=== PATIENT | female | born 1975 | race Caucasian/White ===

== ENCOUNTER 2019-04-18 08:09 | Emergency (ER) | payer BC, OTHER ==
[2019-04-18 08:15] VITALS: RESP 18
[2019-04-18] MEDS ORDERED: SODIUM CHLORIDE 0.9% 2,000 ML IV STA (08:22)
[2019-04-18] MEDS ORDERED: ONDANSETRON 4 MG/2 ML VIAL IVP STA (08:22)
--- NOTE | 2019-04-18 08:37 | ED ---
Nausea/Vomiting/Diarrhea HPI - General Chief complaint: Nausea/Vomiting/Diarrhea Stated complaint: vomiting Time Seen by Provider: 04/18/19 08:20 Source: patient, RN notes reviewed Mode of arrival: ambulatory Limitations: no limitations - History of Present Illness Initial comments: 44-year-old female presents emergency Department with chief complaint of nausea vomiting diarrhea since Friday afternoon. Patient states that she's had persistent symptoms of diarrhea and vomiting denies any hematemesis, coffee- ground emesis, melena or hematochezia. Patient states that she's had a prior appendectomy and one ovary removed in the past. Patient states she has mild abdominal discomfort. Denies fevers or chills. Patient has chest pain or shortness of breath. Patient states his symptoms started shortly after receiving a Saxenda injection for weight loss. Patient states she has not taken it since that they. Patient denies any sick contacts. Patient offers no other associated complaints. - Related Data Home Medications Medication Instructions Recorded Confirmed Multivit with Calcium,Iron,Min 1 tab PO DAILY 06/25/16 04/18/19 [Women's Daily Multivitamin] Topiramate [Topamax] 50 mg PO HS 04/18/19 04/18/19 Allergies Allergy/AdvReac Type Severity Reaction Status Date / Time amoxicillin AdvReac Nausea & Verified 04/18/19 08:49 Vomiting codeine AdvReac Nausea & Verified 04/18/19 08:49 Vomiting morphine AdvReac Itching Verified 04/18/19 08:49 Review of Systems ROS Statement: Those systems with pertinent positive or pertinent negative responses have been documented in the HPI. ROS Other: All systems not noted in ROS Statement are negative. Past Medical History Additional Past Medical History / Comment(s): frequent migraine headaches, right lower abd. pain History of Any Multi-Drug Resistant Organisms: None Reported Past Surgical History: Appendectomy, Breast Surgery, Section, Tonsillectomy, Tubal Ligation, Uterine Ablation Additional Past Surgical History / Comment(s): breast reduction, c/s x2, Past Anesthesia/Blood Transfusion Reactions: Motion Sickness, Postoperative Nausea & Vomiting (PONV) Past Psychological History: No Psychological Hx Reported Smoking Status: Former smoker Past Alcohol Use History: None Reported Past Drug Use History: None Reported - Past Family History Mother Family Medical History: No Reported History General Exam Limitations: no limitations General appearance: alert, in no apparent distress Head exam: Present: atraumatic, normocephalic, normal inspection Eye exam: Present: normal appearance, PERRL, EOMI. Absent: scleral icterus, conjunctival injection, periorbital swelling ENT exam: Present: normal exam, mucous membranes moist Neck exam: Present: normal inspection. Absent: tenderness, meningismus, lymphadenopathy Respiratory exam: Present: normal lung sounds bilaterally. Absent: respiratory distress, wheezes, rales, rhonchi, stridor Cardiovascular Exam: Present: normal rhythm, tachycardia, normal heart sounds. Absent: systolic murmur, diastolic murmur, rubs, gallop, clicks GI/Abdominal exam: Present: soft, tenderness (Mild diffuse), normal bowel sounds. Absent: distended, guarding, rebound, rigid Back exam: Absent: CVA tenderness (R), CVA tenderness (L) Neurological exam: Present: alert, oriented X3, CN II-XII intact Skin exam: Present: warm, dry, intact, normal color. Absent: rash Course Vital Signs 04/18/19 08:11 Temperature 98.8 F Pulse Rate 115 H Respiratory 18 Rate Blood Pressure 134/84 O2 Sat by Pulse 98 Oximetry Medical Decision Making - Medical Decision Making 44-year-old female presented for nausea vomiting diarrhea. Patient symptoms seem to be consistent with gastritis associates multiple quadrant abdominal pain and leukocytosis CT was obtained which shows colonic ileus no evidence of diverticulitis or any other acute abnormality. Patient will be discharged with Zofran clear liquid diet and progress as tolerated. - Lab Data Result diagrams: 04/18/19 08:41 04/18/19 08:41 Lab Results 04/18/19 04/18/19 04/18/19 Range/Units 08:41 08:41 08:41 WBC 18.7 H (3.8-10.6) k/uL RBC 4.60 (3.80-5.40) m/uL Hgb 14.0 (11.4-16.0) gm/dL Hct 41.9 (34.0-46.0) % MCV 91.1 (80.0-100.0) fL MCH 30.4 (25.0-35.0) pg MCHC 33.4 (31.0-37.0) g/dL RDW 14.6 (11.5-15.5) % Plt Count 333 (150-450) k/uL Neutrophils % 84 % Lymphocytes % 11 % Monocytes % 4 % Eosinophils % 0 % Basophils % 0 % Neutrophils # 15.7 H (1.3-7.7) k/uL Lymphocytes # 2.0 (1.0-4.8) k/uL Monocytes # 0.8 (0-1.0) k/uL Eosinophils # 0.1 (0-0.7) k/uL Basophils # 0.0 (0-0.2) k/uL Sodium 141 (137-145) mmol/L Potassium 4.2 (3.5-5.1) mmol/L Chloride 112 H (98-107) mmol/L Carbon Dioxide 19 L (22-30) mmol/L Anion Gap 10 mmol/L BUN 17 (7-17) mg/dL Creatinine 0.57 (0.52-1.04) mg/dL Est GFR (CKD-EPI)AfAm >90 (>60 ml/min/1.73 sqM) Est GFR (CKD-EPI)NonAf >90 (>60 ml/min/1.73 sqM) Glucose 136 H (74-99) mg/dL Calcium 9.0 (8.4-10.2) mg/dL Total Bilirubin 1.4 H (0.2-1.3) mg/dL AST 37 H (14-36) U/L ALT 48 (9-52) U/L Alkaline Phosphatase 81 (38-126) U/L Total Protein 7.4 (6.3-8.2) g/dL Albumin 4.6 (3.5-5.0) g/dL Lipase 56 (23-300) U/L Urine Color Yellow Urine Appearance Cloudy H (Clear) Urine pH 5.5 (5.0-8.0) Ur Specific [place] 1.024 (1.001-1.035) Urine Protein Trace H (Negative) Urine Glucose (UA) Negative (Negative) Urine Ketones Negative (Negative) Urine Blood Negative (Negative) Urine Nitrite Negative (Negative) Urine Bilirubin Negative (Negative) Urine Urobilinogen <2.0 (<2.0) mg/dL Ur Leukocyte Esterase Trace H (Negative) Urine RBC 1 (0-5) /hpf Urine WBC 13 H (0-5) /hpf Ur Squamous Epith Cells 6 H (0-4) /hpf Urine Bacteria Rare H (None) /hpf Urine Mucus Few H (None) /hpf Disposition Clinical Impression: Gastroenteritis, Dehydration Disposition: HOME SELF-CARE Condition: Stable Instructions (If sedation given, give patient instructions): Gastroenteritis (ED) Additional Instructions: Please return to the Emergency Department if symptoms worsen or any other concerns. Is patient prescribed a controlled substance at d/c from ED?: No Referrals: Ron Gonzalez MD [Primary Care Provider] - 1-2 days Time of Disposition: 10:47
[2019-04-18 09:15] LABS: Appearance,Urine Cloudy (Clear); Bacteria,Urine Rare /hpf; Bilirubin,Urine Negative (Negative); Blood,Urine Negative (Negative); Color,Urine Yellow; Glucose,Urine (UA) Negative (Negative); Ketones,Urine Negative (Negative); Leukocyte Esterase,Urine Trace (Negative); Mucus,Urine Few /hpf; Nitrite,Urine Negative (Negative); PH, Urine 5.5 (5.0-8.0); Protein,Urine Trace (Negative); RBC,Urine 1 /hpf (0-5); Specific Gravity,Urine 1.024 (1.001-1.035); Squamous Epithelial Cell,Urine 6 /hpf (0-4); Urobilinogen,Urine <2.0 mg/dL (<2.0)
[2019-04-18 09:21] LABS: ALT 48 U/L (9-52); AST 37 U/L (14-36); Albumin 4.6 g/dL (3.5-5.0); Alkaline Phosphatase 81 U/L (38-126); Anion Gap 10 mmol/L; Blood Urea Nitrogen 17 mg/dL (7-17); Carbon Dioxide 19 mmol/L (22-30); Chloride 112 mmol/L (98-107); Glucose 136 mg/dL (74-99); Lipase 56 U/L (23-300); Potassium 4.2 mmol/L (3.5-5.1); Sodium 141 mmol/L (137-145); Total Bilirubin 1.4 mg/dL (0.2-1.3); Total Protein 7.4 g/dL (6.3-8.2)
[2019-04-18 09:36] LABS: Basophils % (A) 0 %; Eosinophils # (A) 0.1 k/uL (0-0.7); Eosinophils % (A) 0 %; HCT 41.9 % (34.0-46.0); Lymphocytes % (A) 11 %; MCH 30.4 pg (25.0-35.0); MCHC 33.4 g/dL (31.0-37.0); MCV 91.1 fL (80.0-100.0); Mean Platelet Volume 7.1; Monocytes # (A) 0.8 k/uL (0-1.0); Monocytes % (A) 4 %; Neutrophils # (A) 15.7 k/uL (1.3-7.7); Neutrophils % (A) 84 %; Platelet Count 333 k/uL (150-450); RDW 14.6 % (11.5-15.5); WBC 18.7 k/uL (3.8-10.6)
[2019-04-18] MEDS ORDERED: KETOROLAC 30 MG/ML 1 ML VIAL IVP STA (09:48)
--- NOTE | 2019-04-18 10:42 | CT ---
EXAMINATION TYPE: CT abdomen pelvis w con DATE OF EXAM: 04/18/2019 REFERENCE: Previous study dated 06/28/2016. HISTORY: LLQ pain,diarrhea, no history of diverticulitis, CT DLP: 1328.7 mGy Automated exposure control for dose reduction was used. TECHNIQUE: Helical acquisition through the abdomen and pelvis was obtained following the oral ingesti on of without Oral Contrast and following intravenous administration of 100 mL of Isovue 300. The ann a was reformatted in axial, coronal and sagittal projections. FINDINGS: Visualized portions of the lungs are clear. There is no pleural or pericardial fluid. The heart is not enlarged. Within the abdomen, there are small gallstones within the gallbladder. The liver is prominent measuri ng 21 cm. The spleen is unremarkable. Both adrenal glands are normal. Both kidneys demonstrate function and appear morphologically normal. The pancreas is unremarkable. Degenerative changes within the spine. There is no significant retroperitoneal, iliac or inguinal adenopathy. The bladder is unremarkable. Uterus is normal in size. There appears to have been previous tubal ligation. There is no significant diverticular change and there is no radiographic evidence of diverticulitis. There are air-fluid levels present in the transverse colon. The appendix is not visualized. Small bowel loops are of normal caliber. There is no evidence of free air. There is no significant free fluid. There is minor hypertrophic spondylosis within the spine. IMPRESSION: 1. AIR-FLUID LEVELS IN THE TRANSVERSE COLON WITH A NORMAL SIZE: SUGGESTS COLONIC ILEUS. 2. MILD HEPATOMEGALY. 3. CHOLELITHIASIS. 4.
[2019-04-18 12:25] VITALS: BP 126/76; PULSE 89; TEMP 98.1
== END 2019-04-18 12:25 | disposition home or self-care (01) ==
LOC: EC 08:09
DX: K52.9 Noninfective gastroenteritis and colitis, unspecified (principal); E86.0 Dehydration; G43.909 Migraine, unspecified, not intractable, without status migrainosus; Z87.891 Personal history of nicotine dependence; Z79.899 Other long term (current) drug therapy; Z88.0 Allergy status to penicillin; Z88.5 Allergy status to narcotic agent; Z90.49 Acquired absence of other specified parts of digestive tract
CPT/HCPCS: 36415; 80053; 83690; 85025; 81001; 87086; 74177; 99284; 96374; 96375; 96361 ×3; J2405; J1885; Q9967; 87077; 87186

== ENCOUNTER → 2021-10-26 | Outpatient (CLI) | payer OTHER ==
--- NOTE | 2021-10-30 11:43 | MM ---
Reason for exam: screening (asymptomatic). Baseline mammogram. History: Reductions, 2007. Physical Findings: Nurse did not find any significant physical abnormalities on exam. MG 3D Screening Mammo W/Cad Bilateral CC and MLO view(s) were taken. There are scattered fibroglandular densities. Nodularity 12-1 o'clock right breast. Additional nodularity upper outer quadrant left breast. Further evaluation recommended. ASSESSMENT: Incomplete: need additional imaging evaluation, BI-RAD 0 RECOMMENDATION: Special view mammogram of both breasts. If lesion persists on supplemental views, image directed ultrasound is recommended. [facility] will attempt to contact patient to return for supplemental views and ultrasound if indicated.
== END | disposition home or self-care (01) ==
LOC: RADMAMWWP 11:02
PROVIDERS: ATTEND Obstetrics & Gynecology
DX: Z12.31 Encounter for screening mammogram for malignant neoplasm of breast (principal)
CPT/HCPCS: 77063; 77067

== ENCOUNTER → 2021-11-02 | Outpatient (CLI) | payer OTHER ==
--- NOTE | 2021-11-05 08:51 | MM ---
Reason for exam: additional evaluation requested from abnormal screening. Last mammogram was performed less than 1 month ago. History: Reductions, 2007. Physical Findings: Nurse did not find any significant physical abnormalities on exam. MG 3D Work Up W/Cad LILIANA Bilateral LM view(s) were taken. Spot compression CC and spot compression MLO view(s) were taken of the left breast. Prior study comparison: October 26, 2021, bilateral MG 3d screening mammo w/cad. Finding: There is a 13 mm circumscribed round mass located 6 cm from the nipple in the upper quadrant, anterior middle position of the right breast. There is an 8mm oval, obscured lesion in the left breast outer breast, 6mm from the nipple persists. These results were verbally communicated with the patient and result sheet given to the patient on 11/02/21. ASSESSMENT: Incomplete: need additional imaging evaluation, BI-RAD 0 RECOMMENDATION: Ultrasound of both breasts.
--- NOTE | 2021-11-05 08:54 | USB ---
Reason for exam: additional evaluation requested from abnormal screening. History: Reductions, 2007. US Breast Workup Limited LILIANA Right limited breast ultrasound including focal area of concern, retroareolar and axilla demonstrates a 1.4 x 1.1 x 0.6cm solid, hypoechoic lesion at 11 o'clock. Left limited breast ultrasound including focal area of concern, retroareolar and axilla demonstrates a 0.8 x 0.4 x 0.7cm solid, hypoechoic lesion at 3 o'clock and a 0.5 x 0.3 x 0.6cm solid, hypoechoic lesion at 3 o'clock. Biopsy dominant lesion in the right breast. These results were verbally communicated with the patient and result sheet given to the patient on 11/02/21. ASSESSMENT: Suspicious, BI-RAD 4 - Right RECOMMENDATION: Ultrasound core biopsy of the right breast. Called Dr. De Leon's office with mammographic findings and has scheduled an appointment for the patient for 12/20/21 at 8:[address] Quevedo. Biopsy scheduled for 12/07/21 at 10:30. PRELIMINARY REPORT CALLED AND FAXED TO DR. QUEVEDO ON 11/05/21.
== END | disposition home or self-care (01) ==
LOC: RADMAMWWP 13:07
PROVIDERS: ATTEND Obstetrics & Gynecology
DX: N64.59 Other signs and symptoms in breast (principal); N63.10 Unspecified lump in the right breast, unspecified quadrant
CPT/HCPCS: 77066; 76642; G0279; 77062

== ENCOUNTER → 2021-12-07 | Day surgery (SDC) | payer OTHER ==
[2021-12-07 10:02] VITALS: RESP 16; TEMP 98.4
[2021-12-07 11:34] VITALS: BP 142/91; PULSE 82
--- NOTE | 2021-12-07 11:50 | USB ---
EXAMINATION TYPE: US biopsy breast VAD RT, MG diagnostic mammo RT wo CAD DATE OF EXAM: 12/07/2021 CLINICAL HISTORY: R92.8 abnormal mammogram. Abnormal ultrasound TECHNIQUE: Ultrasound guided core biopsy of right breast with clip placement and follow-up two-view mammogram. COMPARISON: Prior mammogram and ultrasound studies November 02, 2021 and October 26, 2021 Baseline screening mammogram. FINDINGS: The procedure of ultrasound guided core biopsy was explained to the patient. Benefits, alternatives, and risks were discussed. An informed consent was then obtained. The patient was placed in supine positioning for imaging and for the procedure. Preprocedure ultrasound redemonstrates a oval wider greater than cough well- circumscribed heterogeneous hypoechoic just over 1.0 cm mass long axis of the o'clock position Zone-A right breast. The overlying skin was prepped and draped in usual sterile fashion. Lidocaine is used as anesthetic into the skin and subcutaneous tissue up to area of concern in the right breast Under ultrasound guidance, a vacuum assisted biopsy gun device was used to obtain 2 core samples. Following this, a biopsy clip was left in lesion. The patient tolerated the procedure well without any immediate complication. The patient was kept in the radiology department for short stay after the procedure and then discharged home in stable condition. Postprocedure mammogram shows successful deployment of clip corresponding to the dominant lesion in the right breast on recent mammograms. IMPRESSION: Successful, uncomplicated ultrasound guided core biopsy of area of concern in the right breast, full pathology results to follow. Low index of suspicion noted at time of procedure. Favor fibroadenoma. Pathology Results: Benign RIGHT BREAST, 11:00, ULTRASOUND GUIDED CORE BIOPSY: Fibroadenoma. Recommendation Bilateral 6 month follow up ultrasound for the solid lesions seen on 11/02/21 ultrasound, likely all fibroadenomas. MTDD
== END ==
LOC: RADUSWWP 09:38
PROVIDERS: ATTEND Surgery
DX: D24.1 Benign neoplasm of right breast (principal)
CPT/HCPCS: 88305; 77065; 19083; A4648; J2001

== ENCOUNTER → 2022-06-14 | Outpatient (CLI) | payer OTHER ==
--- NOTE | 2022-06-14 11:30 | USB ---
Patient History: Menarche at age 15. First Full-Term at age 25. Right ovary removed at age 42. 2008, Reduction. 12/07/2021, Benign Core Biopsy on the right side. Risk Values: Inga 5 year model risk: 1.2%. NCI Lifetime model risk: 11.0%. Prior Study Comparison: 10/26/2021 Bilateral Screening Mammogram, [facility]. 11/02/2021 Bilateral Diagnostic Mammogram, [facility]. 12/07/2021 Right Diagnostic Mammogram, [facility]. Findings: The upper outer quadrant of both breasts, the axilla of both breasts and the retroareolar of both breasts were scanned. There is a 0.8 x 0.6 x 0.7 cm rounded hypoechoic area with a echogenic focus within. This appears to correlate with the mammographic findings and core marker. This is 1 cm from the nipple at the 11:00 position. Additional small hypoechoic cyst like area posterior wall enhancement is 6 cm from the nipple 3:00 position measuring 0.5 x 0.3 x 0.5 cm. At the 3:00 position there is a 0.6 x 0.5 x 0.7 cm hypoechoic area 6.5 cm from the nipple. These appear to been present on the comparison study of 11/02/2021. Overall Assessment: Benign, BI-RAD 2 Management: Screening Mammogram of both breasts in 6 months. Diagnostic Breast Ultrasound of the right breast. A clinical breast exam by your physician is recommended on an annual basis and results should be correlated with mammographic findings. Electronically signed and approved by: Adalberto He D.O. Radiologis
== END | disposition home or self-care (01) ==
LOC: RADUSWWP 09:45
PROVIDERS: ATTEND Surgery
DX: N83.209 Unspecified ovarian cyst, unspecified side (principal)

== ENCOUNTER → 2023-11-05 | Outpatient (CLI) | payer OTHER ==
--- NOTE | 2023-11-05 14:00 | CT ---
EXAMINATION TYPE: CT abdomen pelvis wo con DATE OF EXAM: 11/05/2023 COMPARISON: 04/18/2019 HISTORY: 48-year-old female R10.9, right flank pain CT DLP: 1827.6 mGycm. Automated exposure control for dose reduction was used. TECHNIQUE: Contiguous axial scanning of the abdomen and pelvis without IV contrast. Coronal and sagit shira reconstructions performed. FINDINGS: LUNG BASES: No significant abnormality is appreciated. LIVER/GB: Liver is enlarged measuring 23.7 cm. Severe diminished attenuation of the hepatic parenchym a. Gallbladder shows small layering calculi. No abnormal gallbladder distention. PANCREAS: No significant abnormality is seen. SPLEEN: Borderline size spleen at 13.5 cm. ADRENALS: No significant abnormality is seen. KIDNEYS: Punctate 2 mm nonobstructive right renal calculus. No hydronephrosis on either side. BOWEL: Appendix not visualized. No secondary findings of acute appendicitis in the right lower quadr ant. Mild overall stool burden. Left-sided colonic diverticulosis. No pericolic inflammatory change. No significant abnormality is seen. LYMPH NODES: No significant abnormality is seen. OTHER: Mild atherosclerotic calcifications infrarenal abdominal aorta without aneurysm. Tiny fatty um bilical hernia. PELVIS: Bladder partially distended. Left-sided pelvic phlebolith. Ovaries not well seen. No abnormal fluid collection in the pelvis or pelvic lymphadenopathy. BONES: Mild degenerative change at the hips. Mild degenerative disc lower thoracic spine. Mild facet arthropathy lower lumbar spine. IMPRESSION: 1. Punctate 2 mm nonobstructive right renal stone. No ureteral stone or evidence of obstructive urop athy. 2. Hepatomegaly at 23.7 cm with very severe hepatic steatosis. Correlate with LFTs, lipid profile, a nd patient risk factors. Appropriate clinical management advised. 3. Cholelithiasis and left-sided colonic diverticulosis.
== END | disposition home or self-care (01) ==
LOC: RADCTMAIN 13:19
PROVIDERS: ATTEND Family Medicine
DX: N20.0 Calculus of kidney (principal); K76.0 Fatty (change of) liver, not elsewhere classified; K80.20 Calculus of gallbladder without cholecystitis without obstruction; K57.30 Diverticulosis of large intestine without perforation or abscess without bleeding; R16.0 Hepatomegaly, not elsewhere classified
CPT/HCPCS: 74176

== ENCOUNTER → 2023-11-05 | Outpatient (CLI) | payer OTHER ==
[2023-11-05 18:33] LABS: Basophils # (A) 0.05 X 10*3/uL (0.00-0.10); Basophils % (A) 0.5 %; Eosinophils # (A) 0.17 X 10*3/uL (0.04-0.35); Eosinophils % (A) 1.8 %; HCT 39.4 % (37.2-46.3); HGB 12.8 g/dL (12.0-15.0); Lymphocytes # (A) 3.14 X 10*3/uL (0.90-5.00); Lymphocytes % (A) 33.2 %; MCH 29.2 pg (27.0-32.0); MCHC 32.5 g/dL (32.0-37.0); MCV 89.7 FL (80.0-97.0); Mean Platelet Volume 9.8 FL (9.5-12.2); Monocytes # (A) 0.93 X 10*3/uL (0.20-1.00); Monocytes % (A) 9.8 %; NRBC Per 100 WBC 0 X 10*3/uL (0.00-0.01); Neutrophils # (A) 5.13 X 10*3/uL (1.80-7.70); Neutrophils % (A) 54.3 %; Platelet Count 260 X 10*3/uL (140-440); RBC 4.39 X 10*6/uL (4.10-5.20); RDW 13.2 % (11.5-14.5); WBC 9.46 X 10*3/uL (4.50-10.00)
[2023-11-05 18:43] LABS: Amylase 17 U/L (23-121); BUN/Creat Ratio 22.17 Ratio (12.00-20.00); Blood Urea Nitrogen 13.3 mg/dL (9.0-27.0); Carbon Dioxide 25.8 mmol/L (21.6-31.8); Chloride 103 mmol/L (96-109); Chol/HDL Ratio 7.03 Ratio; Glucose 138 mg/dL (70-110); LDL Cholesterol,Calculated 158.8 mg/dL (0.0-131.0); Lipase 35 U/L (14-63); Potassium 3.9 mmol/L (3.5-5.5); Sodium 140 mmol/L (135-145)
[2023-11-05 18:44] LABS: ALT 72 U/L (8-44); AST 56 U/L (13-35); Albumin 4.4 g/dL (3.8-4.9); Albumin/Globulin Ratio 1.91 Ratio (1.60-3.17); Alkaline Phosphatase 107 U/L (41-126); Calcium 9.8 mg/dL (8.7-10.3); Globulin 2.3 g/dL (1.6-3.3); Total Bilirubin 0.7 mg/dL (0.3-1.2); Total Protein 6.7 g/dL (6.2-8.2)
[2023-11-05 22:11] LABS: Appearance,Urine Clear (Clear); Bilirubin,Urine Negative (Negative); Blood,Urine Negative (Negative); Color,Urine Yellow (Yellow); Ketones,Urine Trace (Negative); Nitrite,Urine Negative (Negative); PH, Urine 5.5; Specific Gravity,Urine 1.025 (1.001-1.030); Urobilinogen,Urine 0.2 E.U./DL
== END | disposition home or self-care (01) ==
LOC: LABWHC1 14:30
PROVIDERS: ATTEND Family Medicine
DX: R16.0 Hepatomegaly, not elsewhere classified (principal); R31.29 Other microscopic hematuria; R35.0 Frequency of micturition
CPT/HCPCS: 36415; 80053; 80061; 81003; 82150; 83690; 85025; 87086

== ENCOUNTER → 2023-11-07 | Outpatient (CLI) | payer OTHER ==
--- NOTE | 2023-11-08 10:04 | US ---
EXAMINATION TYPE: US liver DATE OF EXAM: 11/07/2023 COMPARISON: 11/05/2023. CLINICAL INDICATION: Female, 48 years old with history of R16.0 HEPATOMEGALY, NOT ELSEWHERE CLASSIFIE D; abd GB and Liver on CT, right back pain TECHNIQUE: Multiple sonographic images of the right upper quadrant are obtained. FINDINGS: EXAM MEASUREMENTS: Liver Length: 22.6 cm Gallbladder Wall: 0.2 cm CBD: 0.8 cm Right Kidney: 11.7 x 4.2 x 5.1 cm Pancreas: portion seen appears wnl Liver: enlarged, difficult to penetrate Gallbladder: mobile stones seen, no wall thickening Evidence for sonographic Streeter's sign: no CBD: wnl Right Kidney: wnl IMPRESSION: 1. Hepatic steatosis. 2. Cholelithiasis.
== END | disposition home or self-care (01) ==
LOC: RADUSWWP 16:06
PROVIDERS: ATTEND Family Medicine
DX: K80.20 Calculus of gallbladder without cholecystitis without obstruction (principal); K76.0 Fatty (change of) liver, not elsewhere classified; R16.0 Hepatomegaly, not elsewhere classified; M54.9 Dorsalgia, unspecified
CPT/HCPCS: 76705

== ENCOUNTER → 2023-11-11 | Outpatient (CLI) | payer OTHER | END | disposition home or self-care (01) | LOC: LABWHC1 12:10 | PROVIDERS: ATTEND Family Medicine | DX: R73.9 Hyperglycemia, unspecified (principal) | CPT/HCPCS: 36415; 83036 ==

== ENCOUNTER → 2023-11-14 | Outpatient (CLI) | payer OTHER ==
--- NOTE | 2023-11-14 10:21 | NM ---
EXAMINATION TYPE: NM hepatobiliary w EF DATE OF EXAM: 11/14/2023 9:14 AM COMPARISON: 11/05/2023 CT and ultrasound 11/05/2022. CLINICAL INDICATION:Female, 48 years old with history of K80.70 CALCULUS GALLBLADDER; TECHNIQUE: The patient was given 5 mCi of Technetium 99m-Mebrofenin as a radiotracer and multiple sc intigraphic images were obtained of the abdomen. Gallbladder function was also assessed after the adm inistration of ensure drink and additional scintigraphic images were obtained of the abdomen. A regio n of interest was drawn over the gallbladder and a timing activity curve was generated. The gallbladd er ejection fraction was calculated. FINDINGS: Normal uptake of radiotracer was identified within the liver with excretion into the hepatic and comm on biliary ducts within 6 minutes. There was normal progressive washout of the liver over the course of the study. Radiotracer uptake within the gallbladder at 6 minutes as well as small bowel activity was identified. Maximum calculated gallbladder ejection fraction is: 59% at 30 minutes (Normal gallbladder ejection fraction is > 35%) IMPRESSION: 1. Normal hepatobiliary scan. 2. Normal ejection fraction.
== END | disposition home or self-care (01) ==
LOC: RADNMMAIN 06:55
PROVIDERS: ATTEND Family Medicine
DX: K80.70 Calculus of gallbladder and bile duct without cholecystitis without obstruction (principal)
CPT/HCPCS: 78226; A9537

== ENCOUNTER → 2025-03-11 | Outpatient (CLI) | payer BC ==
--- NOTE | 2025-03-11 12:55 | MM ---
Reason for Exam: Screening (asymptomatic). Last mammogram was performed 2 year(s) and 2 month(s) ago. Patient History: Menarche at age 15. First Full-Term at age 25. Left ovary removed at age 48. Right ovary removed at age 42. Hysterectomy at age 48. Postmenopausal. Currently using Estrogen and Progesterone, starting at age 48. 2008, Reduction. 12/07/2021, Benign Core Biopsy on the right side. Risk Values: Igna 5 year model risk: 1.2%. NCI Lifetime model risk: 10.4%. Prior Study Comparison: 11/02/2021 Bilateral Diagnostic Mammogram, [facility]. 12/07/2021 Right Diagnostic Mammogram, [facility]. 12/20/2022 Bilateral MG 3D diag mammo w/cad LILIANA, [facility]. Tissue Density: There are scattered areas of fibroglandular density. Findings: Analyzed By CAD. There is no suspicious group of microcalcifications or new suspicious mass in either breast. Overall Assessment: Negative, BI-RAD 1 Management: Screening Mammogram of both breasts in 1 year. . Patient should continue monthly self-breast exams. A clinical breast exam by your physician is recommended on an annual basis. This exam should not preclude additional follow-up of suspicious palpable abnormalities. Note on Inga scores and lifetime risk: 1. A Inga score greater than 3% is considered moderate risk. If this is the case, consider specialist referral to assess eligibility for a risk reducing agent. 2. If overall lifetime risk for the development of breast cancer is 20% or higher, the patient may qualify for future screening with alternating mammogram and breast MRI. [facility], , 03/11/2025 12:52 PM. Electronically signed and approved by: Magdi Mcknight M.D. Radiologis
== END | disposition home or self-care (01) ==
LOC: RADMAMWWP 12:20
PROVIDERS: ATTEND Family Medicine
DX: Z12.31 Encounter for screening mammogram for malignant neoplasm of breast (principal); R92.323 Mammographic fibroglandular density, bilateral breasts; Z78.0 Asymptomatic menopausal state
CPT/HCPCS: 77063; 77067